=== PATIENT | female | born 1990 | race African-American/Black ===

== ENCOUNTER 2022-03-09 23:10 | Inpatient (IN) | payer OTHER ==
[2022-03-09] MEDS ORDERED: DINOPROSTONE 10 MG VAGINAL SUPPOSITORY VG ONE (23:57)
[2022-03-10] MEDS ORDERED: DEXTROSE 5%-LACTATED RINGERS 1,000 ML IV SCH ×2 (00:30→08:15)
[2022-03-10 01:19] VITALS: BMI 37.0
[2022-03-10 01:19] LABS: BASO % 0.4 % (0-2.0); EOS % 0.8 % (0-4.5); HEMATOCRIT 34.3 % (32.4-45.2); HEMOGLOBIN 11.7 GM/dL (10.7-15.3); LYMPH % 21.7 % (8-40); MCHC 34.1 g/dl (32.0-36.0); MEAN CELL VOLUME 96.9 fl (80-96); MEAN PLT VOLUME 7.3 fl (7.5-11.1); MONO % 8.4 % (3.8-10.2); NEUT % 68.7 % (42.8-82.8); PLATELET COUNT 288 10^3/uL (134-434); RBC 3.54 M/mm3 (3.60-5.2); RDW 13.9 % (11.6-15.6); WHITE BLOOD COUNT 7.6 K/mm3 (4.0-10.0)
[2022-03-10 01:36] LABS: INR 0.97 (0.83-1.09); PROTHROMBIN TIME (PATIENT) 11.1 SEC (9.7-13.0)
[2022-03-10 01:38] LABS: ACTIVATED PTT 26.5 SECONDS (25.2-36.5)
[2022-03-10 01:57] LABS: CALCIUM 8.2 mg/dL (8.5-10.1)
[2022-03-10 01:58] LABS: BLOOD UREA NITROGEN 9.2 mg/dL (7-18)
[2022-03-10 02:01] LABS: CREATININE 0.6 mg/dL (0.55-1.3)
[2022-03-10 02:52] LABS: HIV INTERPRETATION NEGATIVE (NEGATIVE)
[2022-03-10] MEDS ORDERED: ELECTROLYTE-148 SOLN 1,000 ML IV SCH (05:00)
[2022-03-10] MEDS ORDERED: TERBUTALINE SULFATE 1 MG/1 ML VIAL SQ ONE (07:13)
[2022-03-10] MEDS: TERBUTALINE SULFATE 1 MG/1 ML VIAL SQ PRN ×2 (07:15→07:22)
[2022-03-10] MEDS ORDERED: morphine SULFATE/PF 1 MG/2 ML (2cc Syringe - QUVA) ONE (07:25)
[2022-03-10] MEDS ORDERED: OXYTOCIN 30 UNITS in 0.9% NS 30 UNIT/500 ML INFUS.BAG IVPB SCH (12:35)
[2022-03-10] MEDS ORDERED: OXYTOCIN 30 UNITS in 0.9% NS 30 UNIT/500 ML INFUS.BAG IVPB ONE (13:30)
[2022-03-10] MEDS ORDERED: FENTANYL/BUPIVACAINE/NS/PF - PCEA - 50 ML DISP.SYRIN EP ONE ×2 (14:47→18:16)
[2022-03-10] MEDS ORDERED: BUPIVACAINE HCL/PF 0.25% (2.5MG/ML) 10 ML VIAL ONE (14:53)
[2022-03-10] MEDS ORDERED: NALOXONE HCL 0.4 MG/ML VIAL IVPUSH PRN (15:35)
[2022-03-10] MEDS ORDERED: FENTANYL/BUPIVACAINE/NS/PF - PCEA - 50 ML DISP.SYRIN EP SCH (15:45)
[2022-03-10] MEDS ORDERED: LIDOCAINE HCL 1% PRESERVATIVE FREE - 30ML VIAL ONE (20:33)
[2022-03-10] MEDS ORDERED: OXYTOCIN 20 UNITS in 0.9% NS 20 UNIT/1,000 ML INFUS.BAG IV ONE (20:33)
[2022-03-10] MEDS ORDERED: BENZOCAINE 20% 57 GM BOTTLE TP PRN (22:08)
[2022-03-10] MEDS ORDERED: METHYLERGONOVINE MALEATE 0.2 MG/1 ML AMP IM PRN (22:08)
[2022-03-10] MEDS ORDERED: BENZOCAINE 28 GM HEMORRHOIDAL OINTMENT TP PRN (22:08)
[2022-03-10] MEDS ORDERED: BISACODYL 10 MG SUPP.RECT RC PRN (22:08)
[2022-03-10] MEDS ORDERED: ACETAMINOPHEN 325 MG TABLET (FP) PO PRN (22:08)
[2022-03-10] MEDS ORDERED: WITCH HAZEL 50% (TUCKS) 40 PAD/JAR PAD TP PRN (22:08)
[2022-03-10] MEDS ORDERED: OXYTOCIN 20 UNITS in 0.9% NS 20 UNIT/1,000 ML INFUS.BAG IV SCH (22:15)
[2022-03-10] MEDS ORDERED: IBUPROFEN 600 MG TABLET (FP) PO ONE (23:10)
[2022-03-10] MEDS: IBUPROFEN 600 MG TABLET (FP) PO PRN (23:10)
[2022-03-11] MEDS: IBUPROFEN 600 MG TABLET (FP) PO PRN ×3 (04:48→16:26)
[2022-03-11] MEDS: PRENATAL VITAMINS W/ FOLIC ACID TABLET (FP) PO SCH (09:24)
[2022-03-11 09:41] LABS: BASO % 0.2 % (0-2.0); EOS % 0.3 % (0-4.5); HEMATOCRIT 31.8 % (32.4-45.2); HEMOGLOBIN 10.6 GM/dL (10.7-15.3); LYMPH % 8.7 % (8-40); MCH 32.7 pg (25.7-33.7); MCHC 33.2 g/dl (32.0-36.0); MEAN CELL VOLUME 98.2 fl (80-96); MEAN PLT VOLUME 7.7 fl (7.5-11.1); MONO % 9.1 % (3.8-10.2); NEUT % 81.7 % (42.8-82.8); PLATELET COUNT 276 10^3/uL (134-434); RBC 3.24 M/mm3 (3.60-5.2); RDW 13.8 % (11.6-15.6); WHITE BLOOD COUNT 14.7 K/mm3 (4.0-10.0)
[2022-03-11] MEDS: oxyCODONE HCL 5 MG TABLET PO PRN ×2 (17:46→22:32)
[2022-03-11] MEDS ORDERED: SENNOSIDES/DOCUSATE COMBO (SENNA PLUS) TABLET (UD) PO PRN (22:00)
[2022-03-12] MEDS: IBUPROFEN 600 MG TABLET (FP) PO PRN ×2 (01:31→08:56)
[2022-03-12] MEDS: PRENATAL VITAMINS W/ FOLIC ACID TABLET (FP) PO SCH (09:30)
[2022-03-12 11:04] VITALS: BP 115/73; PULSE 96; TEMP 98.2
== END 2022-03-12 14:50 | disposition home or self-care (01) | DRG 807 ==
LOC: JLDR 23:10 → J3W 03-11 00:08
PROVIDERS: ADMIT Obstetrics & Gynecology; ATTEND Obstetrics & Gynecology
PROC: 10907ZC Drainage of Amniotic Fluid, Therapeutic from Products of Conception, Via Natural or Artificial Opening (ICD-10-PCS; principal; 2022-03-10)
PROC: 10E0XZZ Delivery of Products of Conception, External Approach (ICD-10-PCS; 2022-03-10)
PROC: 3E033VJ Introduction of Other Hormone into Peripheral Vein, Percutaneous Approach (ICD-10-PCS; 2022-03-10)
PROC: 0W8NXZZ Division of Female Perineum, External Approach (ICD-10-PCS; 2022-03-10)
DX: O48.0 Post-term pregnancy (principal); Z37.0 Single live birth; O76 Abnormality in fetal heart rate and rhythm complicating labor and delivery; O69.81X0 Labor and delivery complicated by cord around neck, without compression, not applicable or unspecified; O69.89X0 Labor and delivery complicated by other cord complications, not applicable or unspecified; Z3A.40 40 weeks gestation of pregnancy
CPT/HCPCS: 36415; 59409; 80048; 85025; 85610; 85730; 86780; 86850; 86900; 86901; 87389; C9803-CS; U0003; U0005

== ENCOUNTER 2022-03-15 00:18 | Emergency (ER) | payer OTHER ==
[2022-03-15 01:50] VITALS: BP 101/68; PULSE 76; TEMP 98.4; BMI 35.3
[2022-03-15] MEDS ORDERED: ACETAMINOPHEN 500 MG TABLET (FP) PO ONE (02:06)
[2022-03-15] MEDS ORDERED: ACETAMINOPHEN 325 MG TABLET (FP) ONE (02:09)
== END 2022-03-15 02:50 | disposition home or self-care (01) ==
LOC: JER 00:18
DX: R10.2 Pelvic and perineal pain (principal)
CPT/HCPCS: 99283-25